=== PATIENT | male | born 1970 | race Caucasian/White ===

== ENCOUNTER 2021-09-28 11:45 | Emergency (ER) | payer OTHER ==
[2021-09-28] MEDS ORDERED: NALOXONE 0.4 MG/ML VIAL ONE (11:56)
[2021-09-28 12:02] LABS: Urine Blood Trace-lysed (Negative); Urine Glucose Negative (Negative); Urine Protein Negative (Negative); Urine Specific Gravity 1.015 (1.005-1.030); Urine pH 6.5 (5.0-7.0)
[2021-09-28 12:18] LABS: Absolute Lymphocytes (CBC) 3.6 K/uL (0.7-4.9); Hematocrit 51.6 % (39.6-49.0); Lymphocytes % 52.6 % (15.3-44.8); MPV 7.8 fL (7.6-11.3); RBC Red Blood Cell Count 5.28 M/uL (4.33-5.43)
[2021-09-28 12:20] LABS: Arterial Blood Carboxyhemoglob 1.2 % (0-1.5); Blood Gas Oxyhemoglobin 93.2 % (94-97); Blood O2 Saturation 95.3 % (92-98.5)
[2021-09-28 12:22] LABS: Protime INR 1.08
[2021-09-28 12:23] LABS: Barbiturates NEGATIVE (NEGATIVE); Benzodiazepines NEGATIVE (NEGATIVE); Cocaine NEGATIVE (NEGATIVE); METHAMPHETAM NEGATIVE (NEGATIVE); Methadone NEGATIVE (NEGATIVE); Opiates NEGATIVE (NEGATIVE); Phencyclidine NEGATIVE (NEGATIVE); THC Cannibis NEGATIVE (NEGATIVE)
[2021-09-28 14:20] LABS: ALT/SGPT 37 U/L (12-78); AST/SGOT 24 U/L (15-37); Alkaline Phosphatase 44 U/L (45-117); BUN Blood Urea Nitrogen 13 mg/dL (7-18); Bicarbonate 25 mmol/L (21-32); Bilirubin Direct 0.1 mg/dL (0-0.2); Bilirubin Total 0.4 mg/dL (0.2-1.0); Glomerular Filtration Rate 72 ml/min (=/>90); Glucose Level 90 mg/dL (74-106); NT PRO-BNP 26 pg/mL (<125); Protein, Total 7.4 g/dL (6.4-8.2); Sodium Level 143 mmol/L (136-145)
[2021-09-28 14:27] LABS: Troponin High Sensitivity < 3.0 pg/mL (<58.9)
--- NOTE | 2021-09-28 15:13 | RAD REPORT ---
EXAM DESCRIPTION: CT - Head Brain Wo Cont - 09/28/2021 3:04 pm CLINICAL HISTORY: unresponsive, collapsed COMPARISON: HEAD BRAIN W O CONTRAST dated 09/11/2012 TECHNIQUE: Axial 5 mm thick images of the head were obtained without IV contrast. All CT scans are performed using dose optimization technique as appropriate and may include automated exposure control or mA/KV adjustment according to patient size. FINDINGS: No intracranial hemorrhage, mass, edema or shift of mid-line structures. No acute cortical based infarction. No cortical edema or sulcal effacement. No significant degree of atrophy or chroni c ischemic change. No abnormal extra-axial fluid collections. Ventricles are normal. Intracranial fin dings are similar to prior imaging. Mastoid air cells are clear. Minimal mucosal thickening seen along the posterior left maxillary sinus . No air-fluid levels. No acute bony findings. IMPRESSION: Negative non-contrast CT head examination for acute finding.
--- NOTE | 2021-09-28 15:42 | RAD REPORT ---
EXAM DESCRIPTION: CT - Angio Aorta For Dissection - 09/28/2021 3:10 pm CLINICAL HISTORY: chest pain, unresponsive, collapsed COMPARISON: None. TECHNIQUE: Dynamically enhanced 2 mm thick images of the chest, abdomen, and upper pelvis were obtai wali during administration of approximately 150mL Isovue 370 IV contrast. Sagittal and coronal reconst ruction images were generated using MIP and reviewed. Exam utilizes a protocol to evaluate entire cou rse of the aorta. All CT scans are performed using dose optimization technique as appropriate and may include automated exposure control or mA/KV adjustment according to patient size. FINDINGS: Aorta is normal in diameter with no dissection or other acute aortic findings. Reconstruct ion images show no significant findings. Pulmonary arteries are normal. No cardiomegaly or pericardial effusion. Left ventricular myocardium d oes appear relatively thickened; however, CT sensitivity is limited. No mass or infiltrate in the lung parenchyma. Minimal subpleural scarring and dependent atelectasis c hanges present. No pleural thickening, pleural effusion or pneumothorax. No abnormal mediastinal or hilar mass or lymphadenopathy seen. No chest wall mass or abnormal axillar y lymphadenopathy. Celiac, SMA and renal arteries show no suspicious findings. Solid abdominal viscera and bowel show no significant findings. No mass or abnormal lymphadenopathy. No free air, free fluid or inflammatory stranding. No urinary bladder abnormality. IMPRESSION: Negative CT scan of the aorta. Left ventricular myocardium appears thickened; however, CT sensitivity is limited. No cardiomegaly or pericardial effusion. No other significant findings on chest, abdomen and upper pelvis examination.
--- NOTE | 2021-09-28 15:48 | EDPHYS ---
Physician Documentation [facility] Name: German Flores Age: 50 yrs Sex: Male : 1970 Arrival Date: 09/28/2021 Time: 11:47 Bed 2 Private MD: ED Physician Armando Sofia HPI: 09/28 12:19 This 50 yrs old Male presents to ER via Stretcher with complaints of AMS. rn 12:19 The patient presents with decreased responsiveness. Onset: The symptoms/episode rn began/occurred at an unknown time. Possible causes: unknown. Current symptoms: In the emergency department the patient's symptoms are unchanged from the initial presentation. It is unknown whether or not the patient has had similar symptoms in the past. It is unknown whether or not the patient has recently seen a physician. Pt dropped off by roommate, who reports AMS, unknown onset, states was clutching chest and not as responsive as he usually is. Unknown if drugs or ETOH.. Historical: - PMHx: 17:06 Hypertensive disorder; jd3 - Immunization history:: Adult Immunizations unknown. - Social history:: Smoking status: unknown. - Family history:: not pertinent. - Hospitalizations: : No recent hospitalization is reported. ROS: 12:19 Unable to obtain ROS due to altered mental status. rn Exam: 12:19 Constitutional: This is a well developed, well nourished patient who is not responsive rn to painful stimuli, breathing and has pulse Head/Face: Normocephalic, atraumatic. Eyes: Pupils equal round and reactive to light ENT: dry MM, no tongue laceration Cardiovascular: Regular rate and rhythm. No pulse deficits. Respiratory: No increased work of breathing, no retractions or nasal flaring. Abdomen/GI: Soft, non-tender Skin: Warm, dry MS/ Extremity: Pulses equal, no cyanosis. Neuro: Unresponsive to painful stimuli, woke up and sat up, smells of ETOH, then went back to sleep after mumbling words. Vital Signs: 12:08 BP 118 / 88; Pulse 84; Resp 13 S; Temp 98(TE); Pulse Ox 94% on R/A; Weight 86.18 kg jd3 (R); Height 5 ft. 5 in. (165.10 cm) (R); 12:39 BP 114 / 92; Pulse 81; Resp 16 S; Pulse Ox 100% on R/A; jd3 13:08 BP 107 / 82; Pulse 88; Resp 16 S; Pulse Ox 98% on R/A; jd3 15:24 BP 134 / 98; Pulse 88; Resp 16 S; Pulse Ox 98% on R/A; jd3 17:05 Pulse 86; Resp 16 S; Pulse Ox 100% on R/A; jd3 12:08 Body Mass Index 31.62 (86.18 kg, 165.10 cm) [facility] MDM: 11:49 Patient medically screened. rn 14:56 ED course: Pt doing much better, awake and talkative. Reports HIV+, and put on paxlovid rn recently for COVID exposure. Reports drank last night but not today, so ETOH level was likely very high initially.. 15:46 Differential Diagnosis: electrolyte abnormality, alcohol intoxication, hypoglycemia, rn overdose, pneumonia, seizure, volume depletion. Data reviewed: vital signs, nurses notes, lab test result(s), EKG, radiologic studies, CT scan, and as a result, I will discharge patient. Counseling: I had a detailed discussion with the patient and/or guardian regarding: the historical points, exam findings, and any diagnostic results supporting the discharge/admit diagnosis, lab results, radiology results, the need for outpatient follow up, to return to the emergency department if symptoms worsen or persist or if there are any questions or concerns that arise at home. Response to treatment: the patient's symptoms have markedly improved after treatment, and as a result, I will discharge patient. 09/28 11:50 Order name: Basic Metabolic Panel; Complete Time: 14:39 09/28 11:50 Order name: CBC with Diff; Complete Time: 12:09/28 11:50 Order name: ETOH Level; Complete Time: 14:09/28 11:50 Order name: Hepatic Function; Complete Time: 14:09/28 11:50 Order name: PT-INR; Complete Time: 12:09/28 11:50 Order name: Ptt, Activated; Complete Time: 12:09/28 11:50 Order name: Salicylate; Complete Time: 14:09/28 11:50 Order name: Urine Drug Screen; Complete Time: 12:09/28 11:50 Order name: Troponin High Sensitivity; Complete Time: 14:39 rn 09/28 11:50 Order name: BNP; Complete Time: 14:39 rn 09/28 11:52 Order name: SARS-COV-2 RT PCR (Document "Date of Onset" if Symptomatic); Complete Time: rn 14:26 09/28 12:00 Order name: Glucose, Ancillary Testing; Complete Time: 12:52 EDMS 09/28 12:02 Order name: Urine Dipstick-Ancillary; Complete Time: 12:52 EDMS 09/28 11:50 Order name: EKG; Complete Time: 11:51 rn 09/28 11:50 Order name: EKG - Nurse/Tech; Complete Time: 12:07 rn 09/28 11:50 Order name: IV Saline Lock; Complete Time: 12:13 rn 09/28 11:50 Order name: Labs collected and sent; Complete Time: 12:13 rn 09/28 11:50 Order name: Urine Dipstick-Ancillary (obtain specimen); Complete Time: 12:13 rn 09/28 11:50 Order name: CT Head Brain wo Cont; Complete Time: 15:46 rn 09/28 11:52 Order name: CT Aorta for Dissection; Complete Time: 15:46 rn 09/28 12:21 Order name: ABG Arterial Blood Gas EDMS Administered Medications: 12:00 Drug: NARcan (naloxone) 1 mg Route: IVP; Site: right antecubital; jd3 13:00 Follow up: Response: No adverse reaction jd3 Disposition Summary: 09/28/21 15:47 Discharge Ordered Location: Home rn Problem: new rn Symptoms: have improved rn Condition: Stable rn Diagnosis - Alcohol use, unspecified with intoxication rn - Chest pain, unspecified rn - Unspecified adverse effect of drug or medicament rn Followup: rn - With: Private Physician - When: As needed - Reason: Recheck today's complaints, Re-evaluation by your physician Discharge Instructions: - Discharge Summary Sheet rn - Nonspecific Chest Pain, Adult rn - Pain Without a Known Cause rn Forms: - Medication Reconciliation Form rn - Thank You Letter rn - Antibiotic international marketing specialist - Prescription Opioid Use rn Signatures: Dispatcher [employer] EDMS Armando Sofia MD MD rn Davies, Jonathon, RN RN jd3 Corrections: (The following items were deleted from the chart) 13:53 11:51 ACETAMINOPHEN+C.LAB.BRZ ordered. EDMS EDMS
--- NOTE | 2021-09-28 15:48 | ER ---
Nurse's Notes [facility] Name: German Flores Age: 50 yrs Sex: Male : 1970 Arrival Date: 09/28/2021 Time: 11:47 Bed 2 Private MD: Diagnosis: Alcohol use, unspecified with intoxication;Chest pain, unspecified;Unspecified adverse effect of drug or medicament Presentation: 09/28 12:06 Chief complaint: Friend and/or Co-Worker states: "he was clutching the left side of his jd3 chest and reporting chest pain." pt observed to be in and out of consciousness. alert to painful stimuli. Coronavirus screen: At this time, the client does not indicate any symptoms associated with coronavirus-19. Ebola Screen: No symptoms or risks identified at this time. Initial Sepsis Screen: Does the patient meet any 2 criteria? No. Patient's initial sepsis screen is negative. Does the patient have a suspected source of infection? No. Patient's initial sepsis screen is negative. Risk Assessment: Do you want to hurt yourself or someone else? Patient reports no desire to harm self or others. Onset of symptoms was September 28, 2021. 12:06 Method Of Arrival: Stretcher jd3 12:06 Acuity: ROCIO 2 jd3 Historical: - PMHx: 17:06 Hypertensive disorder; jd3 - Immunization history:: Adult Immunizations unknown. - Social history:: Smoking status: unknown. - Family history:: not pertinent. - Hospitalizations: : No recent hospitalization is reported. Screenin:11 Abuse screen: Denies threats or abuse. Nutritional screening: No deficits noted. jd3 Tuberculosis screening: No symptoms or risk factors identified. Fall Risk Fall in past 12 months (25 points). IV access (20 points). Mental Status- Overestimates/Forgets Limitations (15 pts.). Total Whitehead Fall Scale indicates High Risk Score (45 or more points). Fall prevention measures have been instituted. Side Rails Up X 2 Placed Close to Nursing Station Frequent Obs/Assessments Occuring. Assessment: 12:09 General: Appears comfortable, Behavior is drowsy, Smells of alcohol. Pain: Quality of jd3 pain is described as when awake pt reports pain to his chest. Neuro: Franks Agitation-Sedation Scale (RASS): -1 Drowsy Level of Consciousness is stuporous, Oriented to none no focal neuro deficits noted. Cardiovascular: Heart tones present Capillary refill < 3 seconds Patient's skin is warm and dry. Rhythm is sinus tachycardia. Respiratory: Airway is patent Respiratory effort is even, unlabored, Respiratory pattern is regular, symmetrical, Breath sounds are clear bilaterally. GI: No signs and/or symptoms were reported involving the gastrointestinal system. : No signs and/or symptoms were reported regarding the genitourinary system. EENT: No signs and/or symptoms were reported regarding the EENT system. Derm: Skin is intact, Skin is dry, Skin is normal, Skin temperature is warm. Musculoskeletal: Circulation, motion, and sensation intact. Range of motion: intact in all extremities. 12:38 Reassessment: Patient and/or family updated on plan of care and expected duration. Pain jd3 level reassessed. Patient is alert, oriented x 3, equal unlabored respirations, skin warm/dry/pink. Neuro: Franks Agitation-Sedation Scale (RASS): 0 - Alert and Calm Level of Consciousness is awake, alert, obeys commands, confused, Oriented to person, time, pt reoriented and answer questions appropriately at this time. 13:08 Reassessment: Patient appears in no apparent distress at this time. Patient and/or jd3 family updated on plan of care and expected duration. Pain level reassessed. Patient is alert, oriented x 3, equal unlabored respirations, skin warm/dry/pink. friend at bedside. 14:00 Reassessment: Patient appears in no apparent distress at this time. No changes from jd3 previously documented assessment. Patient and/or family updated on plan of care and expected duration. Pain level reassessed. Patient is alert, oriented x 3, equal unlabored respirations, skin warm/dry/pink. 15:24 Reassessment: Patient appears in no apparent distress at this time. No changes from jd3 previously documented assessment. Patient and/or family updated on plan of care and expected duration. Pain level reassessed. Patient is alert, oriented x 3, equal unlabored respirations, skin warm/dry/pink. 17:05 Reassessment: Patient appears in no apparent distress at this time. Patient and/or jd3 family updated on plan of care and expected duration. Pain level reassessed. Patient is alert, oriented x 3, equal unlabored respirations, skin warm/dry/pink. Patient states feeling better. Patient states symptoms have improved. Vital Signs: 12:08 BP 118 / 88; Pulse 84; Resp 13 S; Temp 98(TE); Pulse Ox 94% on R/A; Weight 86.18 kg jd3 (R); Height 5 ft. 5 in. (165.10 cm) (R); 12:39 BP 114 / 92; Pulse 81; Resp 16 S; Pulse Ox 100% on R/A; jd3 13:08 BP 107 / 82; Pulse 88; Resp 16 S; Pulse Ox 98% on R/A; jd3 15:24 BP 134 / 98; Pulse 88; Resp 16 S; Pulse Ox 98% on R/A; jd3 17:05 Pulse 86; Resp 16 S; Pulse Ox 100% on R/A; jd3 12:08 Body Mass Index 31.62 (86.18 kg, 165.10 cm) jd3 ED Course: 11:47 Patient arrived in ED. eb 11:49 Armando Sofia MD is Attending Physician. rn 12:00 Inserted saline lock: 18 gauge in right antecubital area, using aseptic technique. jd3 Blood collected. placed by Eric NICOLAS. 12:05 Inserted saline lock: 18 gauge in left wrist, using aseptic technique. jd3 12:06 Gavin Dudley, FIDENCIO is Primary Nurse. jd3 12:07 Triage completed. jd3 12:07 EKG done, by ED staff, reviewed by Armando Sofia MD. em1 12:08 Arm band placed on. jd3 12:09 EKG completed in triage. Results shown to . jd3 12:12 Patient has correct armband on for positive identification. Bed in low position. Call jd3 light in reach. Side rails up X2. in view of nurse. Client placed on continuous cardiac and pulse oximetry monitoring. NIBP monitoring applied. inventory coordinator on. Pulse ox on. NIBP on. Warm blanket given. 15:06 CT Head Brain wo Cont In Process Unspecified. EDMS 15:12 CT Aorta for Dissection In Process Unspecified. EDMS 17:05 No provider procedures requiring assistance completed. IV discontinued, intact, jd3 bleeding controlled, No redness/swelling at site. Pressure dressing applied. Administered Medications: 12:00 Drug: NARcan (naloxone) 1 mg Route: IVP; Site: right antecubital; jd3 13:00 Follow up: Response: No adverse reaction jd3 Medication: 12:11 VIS not applicable for this client. jd3 Outcome: 15:47 Discharge ordered by . rn 17:06 Discharged to home ambulatory, with friend. jd3 17:06 Condition: stable 17:06 Discharge instructions given to patient, friend, Instructed on discharge instructions, follow up and referral plans. Demonstrated understanding of instructions, follow-up care. 17:07 Patient left the ED. jd3 Signatures: Dispatcher [employer] EDMS Armando Sofia MD MD rn Martinez, Eric em1 Davies, Jonathon, RN RN Madie Ramsey
[2021-09-28 18:01] VITALS: TEMP 98
[2021-09-28 18:10] VITALS: BP 134/98
[2021-09-28 18:12] VITALS: O2SAT 100
--- NOTE | 2021-09-29 17:29 | EKG ---
Test Date: 2021-09-28 Test Time: 11:43:40 Administrative Job Titles: MEASUREMENT RESULTS: Intervals: Rate: 91 NM: 164 QRSD: 74 QT: 350 QTc: 430 Hernando: P: 51 NM: 164 QRS: 51 T: 32 INTERPRETIVE STATEMENTS: Normal sinus rhythm Normal ECG Compared to ECG 11/20/2011 00:13:21 No significant changes Electronically Signed On 09-29-21 17:27:32 CDT by Lam Castillo
== END 2021-09-28 17:07 | disposition home or self-care (01) ==
LOC: ER 11:45
DX: F10.929 Alcohol use, unspecified with intoxication, unspecified (principal); R07.9 Chest pain, unspecified; T50.905A Adverse effect of unspecified drugs, medicaments and biological substances, initial encounter; Z20.822 Contact with and (suspected) exposure to COVID-19; I10 Essential (primary) hypertension
CPT/HCPCS: 93005; 85025; 80048; 36415; 80320; 85610; 80329; 82947; 80076; 85730; 81003; 84484; 83880; 80307; 70450; 71275; 74175; 82805; 96374; 99291; 99292; U0003; Q9967; J2310